=== PATIENT | female | born 1985 | race African-American/Black ===

== ENCOUNTER 2017-02-25 09:29 | Outpatient (CLI) | payer BC | END 2017-02-25 10:45 | disposition home or self-care (01) | LOC: US 09:29 | DX: R22.1 Localized swelling, mass and lump, neck (principal) ==

== ENCOUNTER 2018-10-03 11:40 | Emergency (ER) | payer OTHER ==
[~2018-10-03] VITALS: Ht 154.9 cm; Wt 90.7 kg
[2018-10-03 13:36] VITALS: BP 120/70; TEMP 98
== END 2018-10-03 13:36 | disposition home or self-care (01) ==
LOC: ED 11:40
DX: S16.1XXA Strain of muscle, fascia and tendon at neck level, initial encounter (principal); R51 Headache
CPT/HCPCS: 96372; 99283; J1885

== ENCOUNTER 2018-10-30 08:02 | Outpatient (CLI) | payer OTHER | END 2018-10-30 20:27 | disposition home or self-care (01) | LOC: LABW 08:02 | PROVIDERS: Physician Assistant | DX: R79.89 Other specified abnormal findings of blood chemistry (principal); E78.5 Hyperlipidemia, unspecified; E03.9 Hypothyroidism, unspecified | CPT/HCPCS: 36415; 80061; 82306; 84443 ==

== ENCOUNTER 2018-11-26 08:50 | Outpatient (CLI) | payer OTHER | END 2018-11-26 19:08 | disposition home or self-care (01) | LOC: US 08:50 | DX: K43.9 Ventral hernia without obstruction or gangrene (principal) ==

== ENCOUNTER 2019-06-10 06:58 | Outpatient (CLI) | payer OTHER ==
[2019-06-10 07:40] LABS: PLATELET COUNT 271 K/uL (152-353)
[2019-06-10 07:48] LABS: POTASSIUM 3.9 mmol/L (3.6-5.2)
== END 2019-06-10 20:14 | disposition home or self-care (01) ==
LOC: LABW 06:58
PROVIDERS: Physician Assistant
DX: E78.5 Hyperlipidemia, unspecified (principal); E55.9 Vitamin D deficiency, unspecified; E11.9 Type 2 diabetes mellitus without complications; N92.6 Irregular menstruation, unspecified
CPT/HCPCS: 36415; 80053; 80061; 82306; 82670; 83001; 83002; 84403; 84439; 84443; 85027

== ENCOUNTER 2020-02-16 08:53 | Outpatient (CLI) | payer OTHER ==
[2020-02-16 14:19] LABS: PLATELET COUNT 276 K/uL (152-353)
== END 2020-02-16 19:08 | disposition home or self-care (01) ==
LOC: RAD 08:53 → LAB 08:53 → RAD 19:08
PROVIDERS: Nurse Practitioner Family
DX: R10.9 Unspecified abdominal pain (principal); R10.30 Lower abdominal pain, unspecified; E11.9 Type 2 diabetes mellitus without complications; E78.5 Hyperlipidemia, unspecified; E55.9 Vitamin D deficiency, unspecified; E03.9 Hypothyroidism, unspecified
CPT/HCPCS: 80053; 80061; 83036; 84439; 84443; 85027

== ENCOUNTER 2020-04-09 11:03 | Emergency (ER) | payer OTHER ==
[~2020-04-09] VITALS: Ht 154.9 cm; Wt 88.0 kg
== END 2020-04-09 13:04 | disposition home or self-care (01) ==
LOC: ED 11:03
DX: S86.812A Strain of other muscle(s) and tendon(s) at lower leg level, left leg, initial encounter (principal)
CPT/HCPCS: 96372; 99283; J1885

== ENCOUNTER 2020-04-12 14:16 | Outpatient (CLI) | payer OTHER | END 2020-04-12 21:27 | disposition home or self-care (01) | LOC: MRI 14:16 | DX: M22.02 Recurrent dislocation of patella, left knee (principal) ==

== ENCOUNTER 2020-08-15 09:27 | Outpatient (CLI) | payer OTHER ==
[2020-08-15 09:45] LABS: PLATELET COUNT 321 K/uL (152-353)
== END 2020-08-15 22:07 | disposition home or self-care (01) ==
LOC: CT 09:27
PROVIDERS: ATTEND Internal Medicine
DX: R10.32 Left lower quadrant pain (principal)
CPT/HCPCS: 36415; 80076; 82150; 83690; 85027; Q9963

== ENCOUNTER 2020-11-16 12:40 | Outpatient (CLI) | payer OTHER ==
[2020-11-16 13:22] LABS: PLATELET COUNT 293 K/uL (152-353)
[2020-11-16 13:40] LABS: POTASSIUM 3.9 mmol/L (3.6-5.2)
== END 2020-11-16 21:12 | disposition home or self-care (01) ==
LOC: LAB 12:40
PROVIDERS: ATTEND Internal Medicine
DX: E03.9 Hypothyroidism, unspecified (principal); E11.9 Type 2 diabetes mellitus without complications
CPT/HCPCS: 80053; 80061; 81000; 83036; 84439; 84443; 85027

== ENCOUNTER 2020-11-26 14:31 | Outpatient (CLI) | payer OTHER | END 2020-11-26 19:00 | disposition home or self-care (01) | LOC: RAD 14:31 | PROVIDERS: ATTEND Family Medicine | DX: K62.89 Other specified diseases of anus and rectum (principal); M54.5 Low back pain ==

== ENCOUNTER 2020-11-29 09:06 | Outpatient (CLI) | payer OTHER | END 2020-11-29 20:42 | disposition home or self-care (01) | LOC: LAB 09:06 | PROVIDERS: ATTEND Family Medicine | DX: R19.7 Diarrhea, unspecified (principal); R19.5 Other fecal abnormalities | CPT/HCPCS: 82272; 87015; 87045; 87328; 87329; 87899 ==

== ENCOUNTER 2020-12-28 10:11 | Day surgery (SDC) | payer OTHER ==
[2020-12-22 09:17] LABS: PLATELET COUNT 307 K/uL (152-353)
== END 2020-12-28 12:19 | disposition home or self-care (01) ==
LOC: OR 10:11
PROVIDERS: ATTEND Internal Medicine Gastroenterology
PROC: 0DBB8ZZ Excision of Ileum, Via Natural or Artificial Opening Endoscopic (ICD-10-PCS; principal; 2020-12-28)
PROC: 0DBE8ZZ Excision of Large Intestine, Via Natural or Artificial Opening Endoscopic (ICD-10-PCS; 2020-12-28)
DX: K63.3 Ulcer of intestine (principal); K52.89 Other specified noninfective gastroenteritis and colitis; K64.8 Other hemorrhoids; R10.32 Left lower quadrant pain; K62.89 Other specified diseases of anus and rectum; Z20.822 Contact with and (suspected) exposure to COVID-19
CPT/HCPCS: 80053; 85027; 87635; J2704; U0003

== ENCOUNTER 2021-07-20 14:19 | Outpatient (CLI) | payer OTHER | END 2021-07-20 19:19 | disposition home or self-care (01) | LOC: RAD 14:19 | PROVIDERS: ATTEND Family Medicine | DX: R05.9 Cough, unspecified (principal); M54.9 Dorsalgia, unspecified ==

== ENCOUNTER 2022-12-17 08:37 | Outpatient (CLI) | payer OTHER ==
[2022-12-17 09:20] LABS: PLATELET COUNT 328 K/uL (152-353)
[2022-12-17 09:54] LABS: POTASSIUM 4.1 mmol/L (3.6-5.2)
== END 2022-12-17 20:07 | disposition home or self-care (01) ==
LOC: LABW 08:37
PROVIDERS: ATTEND Family Medicine
DX: J01.90 Acute sinusitis, unspecified (principal); J30.89 Other allergic rhinitis; E11.9 Type 2 diabetes mellitus without complications; E03.8 Other specified hypothyroidism; F41.9 Anxiety disorder, unspecified; E78.2 Mixed hyperlipidemia; M54.59 Other low back pain; E55.9 Vitamin D deficiency, unspecified
CPT/HCPCS: 36415; 80053; 80061; 81000; 82306; 83036; 84439; 84443; 84550; 85027